=== PATIENT | female | born 1980 | race Caucasian/White ===

== ENCOUNTER 2017-09-02 09:25 | Inpatient (IN) | payer OTHER ==
[~2017-09-02] VITALS: Ht 162.6 cm; Wt 89.0 kg
[~2017-09-02 09:25] MED LIST: SERT50TA PO; VARE1TAB21 PO
[2017-09-03] MEDS ORDERED: OXYTOCIN 30U/ 0.9% NaCL 500ML 500 ML IV SCH (05:18)
[2017-09-03] MEDS ORDERED: LACTATED RINGERS 1,000 ML IV SCH ×3 (05:18→07:21)
[2017-09-03] MEDS ORDERED: SODIUM CITRATE/CITRIC ACID 30 ML UDC ONE (05:27)
[2017-09-03] MEDS ORDERED: NEWBORN KIT ONE (05:27)
[2017-09-03] MEDS ORDERED: METOCLOPRAMIDE 5 MG/ML, 2ML ONE (05:27)
[2017-09-03] MEDS ORDERED: LACTATED RINGERS 1,000 ML IVBOLUS ONE (05:30)
[2017-09-03] MEDS ORDERED: METOCLOPRAMIDE 5 MG/ML, 2ML IV ONE (05:30)
[2017-09-03] MEDS ORDERED: SODIUM CITRATE/CITRIC ACID 30 ML UDC PO ONE (05:30)
[2017-09-03 05:42] LABS: BASOPHILS # (AUTO) 0.06 x10^3/uL (0-0.1); BASOPHILS % (AUTO) 1 % (0-1); EOSINOPHILS % (AUTO) 1 % (1-7); LYMPHOCYTES # (AUTO) 4.05 x10^3/uL (1-3.4); LYMPHOCYTES % (AUTO) 35 % (22-44); MD NO; MEAN CORPUSCULAR HEMOGLOBIN 24.3 pg (27.0-34.8); MEAN CORPUSCULAR HGB CONC 31.8 g/dL (32.4-35.8); MEAN CORPUSCULAR VOLUME 76.5 fL (80-100); MEAN PLATELET VOLUME 7.9 fL (7.4-10.4); MONOCYTES # (AUTO) 0.77 x10^3/uL (0.2-0.8); MONOCYTES % (AUTO) 7 % (2-9); NEUTROPHILS # (AUTO) 6.52 x10^3/uL (1.8-6.8); NEUTROPHILS % (AUTO) 57 % (42-75); PLATELET COUNT 331 x10^3/uL (130-400); RED BLOOD COUNT 4.23 x10^6/uL (3.82-5.3); RED CELL DISTRIBUTION WIDTH 17.2 % (9.6-15.2)
[2017-09-03] MEDS ORDERED: OXYTOCIN 10 UNITS/ML, 1ML ONE (07:08)
[2017-09-03] MEDS ORDERED: CEFAZOLIN 1,000 MG ONE (07:08)
[2017-09-03] MEDS ORDERED: FENTANYL PF 100 MCG/2ML ONE (07:09)
[2017-09-03] MEDS ORDERED: OXYTOCIN 30U/ 0.9% NaCL 500ML 500 ML ONE (07:12)
[2017-09-03] MEDS ORDERED: LIDOCAINE 1%, 20ML ONE (07:27)
[2017-09-03] MEDS ORDERED: MISOPROSTOL 200 MCG TABLET PR PRN (07:30)
[2017-09-03] MEDS ORDERED: OXYcodone/APAP 5/325MG TABLET PO PRN (07:30)
[2017-09-03] MEDS ORDERED: DIPH,PERTUSS(ACELL),TET VAC/PF NC IM-VACC PRN (07:30)
[2017-09-03] MEDS ORDERED: ACETAMINOPHEN 325 MG TABLET PO PRN ×2 (07:30)
[2017-09-03] MEDS ORDERED: MEASLES,MUMPS&RUBELLA VACC/PF 0.5 ML SQ-VACC PRN (07:30)
[2017-09-03] MEDS ORDERED: morphine SULFATE 10 MG/ML, 1ML IVPush PRN (07:30)
[2017-09-03] MEDS ORDERED: RHOGAM FROM BLOOD BANK 1 NOTE EA IM/IV ONE (07:30)
[2017-09-03] MEDS ORDERED: ONDANSETRON 2MG/ML, 2ML IV PRN (07:30)
[2017-09-03] MEDS ORDERED: KETOROLAC 30 MG/1 ML ONE (08:18)
[2017-09-03] MEDS: PRENATAL VIT/IRON/FA 1 EACH TABLET PO SCH (09:00)
[2017-09-03] MEDS: OXYTOCIN 30U/ 0.9% NaCL 500ML 500 ML IV SCH ×2 (09:09→17:21)
[2017-09-03] MEDS: LACTATED RINGERS 1,000 ML IV SCH ×3 (09:25→19:35)
[2017-09-03 10:50] VITALS: BP 105/68
[2017-09-03] MEDS: OXYcodone/APAP 5/325MG TABLET PO PRN ×3 (11:46→19:35)
[2017-09-03] MEDS ORDERED: FENTANYL PF 100 MCG/2ML IV PRN (12:00)
[2017-09-03] MEDS ORDERED: MEPERIDINE/PF 25MG/0.5ML IVPush PRN (12:00)
[2017-09-03] MEDS ORDERED: HYDROmorphone 1 MG/ML, 1ML IV PRN (12:00)
[2017-09-03] MEDS ORDERED: EPHEDRINE 50 MG/ML, 1ML IVPush PRN (12:00)
[2017-09-03] MEDS ORDERED: OXYcodone 5 MG/5 ML ORAL.SOL UDC PO PRN (12:00)
[2017-09-03] MEDS: KETOROLAC 30 MG/1 ML IV SCH ×2 (15:02→21:00)
[2017-09-03 15:38] VITALS: BP 108/65
[2017-09-03 16:01] LABS: BASOPHILS # (AUTO) 0.04 x10^3/uL (0-0.1); BASOPHILS % (AUTO) 0 % (0-1); EOSINOPHILS # (AUTO) 0.03 x10^3/uL (0-0.4); EOSINOPHILS % (AUTO) 0 % (1-7); LYMPHOCYTES # (AUTO) 3.17 x10^3/uL (1-3.4); LYMPHOCYTES % (AUTO) 25 % (22-44); MD NO; MEAN CORPUSCULAR HEMOGLOBIN 23.8 pg (27.0-34.8); MEAN CORPUSCULAR HGB CONC 31.2 g/dL (32.4-35.8); MEAN CORPUSCULAR VOLUME 76.2 fL (80-100); MEAN PLATELET VOLUME 7.4 fL (7.4-10.4); MONOCYTES % (AUTO) 6 % (2-9); NEUTROPHILS # (AUTO) 8.91 x10^3/uL (1.8-6.8); NEUTROPHILS % (AUTO) 69 % (42-75); PLATELET COUNT 261 x10^3/uL (130-400); RED BLOOD COUNT 3.22 x10^6/uL (3.82-5.3); RED CELL DISTRIBUTION WIDTH 17.2 % (9.6-15.2)
[2017-09-03 19:10] VITALS: BP 110/66
[2017-09-03] MEDS: DOCUSATE 100 MG CAPSULE PO PRN (19:35)
[2017-09-03] MEDS ORDERED: OXYcodone IR 5MG TABLET PO PRN (23:00)
[2017-09-04 00:10] VITALS: BP 119/70
[2017-09-04] MEDS: OXYcodone/APAP 5/325MG TABLET PO PRN (00:19)
[2017-09-04] MEDS: KETOROLAC 30 MG/1 ML IV SCH ×2 (02:59→08:36)
[2017-09-04] MEDS: OXYTOCIN 30U/ 0.9% NaCL 500ML 500 ML IV SCH (03:21)
[2017-09-04] MEDS: OXYcodone IR 5MG TABLET PO PRN ×5 (04:50→21:49)
[2017-09-04 04:51] VITALS: BP 112/64
[2017-09-04 08:00] VITALS: BP 116/78
[2017-09-04] MEDS: PRENATAL VIT/IRON/FA 1 EACH TABLET PO SCH (08:36)
[2017-09-04] MEDS: DOCUSATE 100 MG CAPSULE PO PRN ×2 (08:36→21:49)
[2017-09-04] MEDS: IBUPROFEN 600 MG TABLET PO PRN ×2 (14:44→21:49)
[2017-09-04 21:10] VITALS: BP 127/75
[2017-09-05] MEDS: OXYcodone IR 5MG TABLET PO PRN ×3 (02:12→10:35)
[2017-09-05] MEDS: IBUPROFEN 600 MG TABLET PO PRN ×2 (04:00→10:34)
[2017-09-05 08:30] VITALS: BP 127/84
[2017-09-05] MEDS: DOCUSATE 100 MG CAPSULE PO PRN (08:39)
[2017-09-05] MEDS: PRENATAL VIT/IRON/FA 1 EACH TABLET PO SCH (08:39)
[2017-09-05] MEDS ORDERED: OXYC-302 PO (11:11)
[2017-09-05] MEDS ORDERED: IBUP-1222 PO (11:11)
== END 2017-09-05 12:34 | disposition home or self-care (01) | DRG 765 ==
LOC: LDIP 09-03 05:14 → 2NW 09-03 10:45
PROVIDERS: ADMIT Obstetrics & Gynecology; ATTEND Obstetrics & Gynecology
PROC: 10D00Z1 Extraction of Products of Conception, Low, Open Approach (ICD-10-PCS; principal; 2017-09-03)
PROC: 0UT70ZZ Resection of Bilateral Fallopian Tubes, Open Approach (ICD-10-PCS; 2017-09-03)
PROC: 3E0334Z Introduction of Serum, Toxoid and Vaccine into Peripheral Vein, Percutaneous Approach (ICD-10-PCS; 2017-09-03)
DX: O34.211 Maternal care for low transverse scar from previous cesarean delivery (principal); O36.0930 Maternal care for other rhesus isoimmunization, third trimester, not applicable or unspecified; O77.0 Labor and delivery complicated by meconium in amniotic fluid; D64.9 Anemia, unspecified; O99.344 Other mental disorders complicating childbirth; O99.844 Bariatric surgery status complicating childbirth; F32.9 Major depressive disorder, single episode, unspecified; F41.9 Anxiety disorder, unspecified; O99.02 Anemia complicating childbirth; Z64.1 Problems related to multiparity; Z37.0 Single live birth; Z30.2 Encounter for sterilization; Z3A.39 39 weeks gestation of pregnancy
CPT/HCPCS: 36415; 85025; 85461; 86850; 86900; 88302; J0690; J1885; J2790; J3010; J3490; J2590; J2765; J7120